=== PATIENT | male | born 1980 | race Caucasian/White ===

== ENCOUNTER 2017-12-03 16:37 | Emergency (ER) | payer OTHER ==
[~2017-12-03] VITALS: Ht 175.3 cm; Wt 80.9 kg
[2017-12-03] MEDS ORDERED: KETOROLAC 30 MG/1 ML IM ONE (17:30)
[2017-12-03] MEDS ORDERED: DIAZEPAM 5 MG TABLET PO ONE (17:30)
[2017-12-03] MEDS ORDERED: KETOROLAC 30 MG/1 ML ONE (17:38)
[2017-12-03] MEDS ORDERED: DIAZEPAM 5 MG TABLET ONE (17:38)
[2017-12-03 18:31] VITALS: BP 135/85
== END 2017-12-03 18:33 | disposition home or self-care (01) ==
LOC: ED 18:02
DX: M54.16 Radiculopathy, lumbar region (principal); M51.26 Other intervertebral disc displacement, lumbar region; M54.42 Lumbago with sciatica, left side; Z88.0 Allergy status to penicillin
CPT/HCPCS: 96372; 99283; J1885; J7512